=== PATIENT | male | born 1960 | race African-American/Black ===

== ENCOUNTER 2022-04-21 09:02 | Inpatient (IN) | payer OTHER ==
[2022-04-21 09:37] VITALS: BMI 32.0
[2022-04-21] MEDS ORDERED: ACETAMINOPHEN 325 MG TABLET (FP) PO PRN ×2 (11:09)
[2022-04-21] MEDS ORDERED: IBUPROFEN 600 MG TABLET (FP) PO PRN (11:09)
[2022-04-21] MEDS ORDERED: METHOCARBAMOL 500 MG TABLET PO PRN (11:09)
[2022-04-21] MEDS ORDERED: DICYCLOMINE HCL 10 MG CAPSULE PO PRN (11:09)
[2022-04-21] MEDS ORDERED: POLYETHYLENE GLYCOL (HEALTHYLAX) 3350 17 GM PACKET PO PRN (11:09)
[2022-04-21] MEDS ORDERED: BISMUTH SUBSALICYLATE 524 MG/30 ML PO PRN (11:09)
[2022-04-21] MEDS ORDERED: MAGNESIUM HYDROX 2400MG/30ML ORAL SUSPENSION 30 ML CUP PO PRN (11:09)
[2022-04-21] MEDS ORDERED: IBUPROFEN 400 MG TABLET (FP) PO PRN (11:09)
[2022-04-21] MEDS ORDERED: NALOXONE HCL (KLOXXADO) 8 MG SPRAY NS PRN (11:09)
[2022-04-21] MEDS ORDERED: BENZOCAINE/MENTHOL (CHLORASEPTIC ) LOZENGE MM PRN (11:09)
[2022-04-21] MEDS ORDERED: ONDANSETRON *ODT* 4 MG TABLET SL PRN (11:09)
[2022-04-21] MEDS ORDERED: LOPERAMIDE HCL 2 MG CAPSULE PO PRN (11:09)
[2022-04-21] MEDS ORDERED: MAG HYDROX/AL HYDROX/SIMETH 30 ML UNIT-DOSE CUP PO PRN (11:09)
[2022-04-21] MEDS ORDERED: FUROSEMIDE 40 MG TABLET (FP) PO SCH (13:00)
[2022-04-21] MEDS ORDERED: APIXABAN 5 MG TABLET PO SCH (13:00)
[2022-04-21] MEDS ORDERED: SILVER SULFADIAZINE 1% TOP CREAM 50 GM JAR TP SCH (13:00)
[2022-04-21] MEDS: FUROSEMIDE 40 MG TABLET (FP) PO SCH (15:35)
[2022-04-21] MEDS: hydrOXYzine PAMOATE 25 MG CAPSULE (FP) PO PRN ×2 (15:35→22:22)
[2022-04-21] MEDS: APIXABAN 5 MG TABLET PO SCH ×2 (15:36→22:22)
[2022-04-21] MEDS: PATIENT'S OWN MEDICATION (NON-FORMULARY) (Nifedipine [Nifedipine Er] 60 MG Tablet.Er) PO SCH (15:36)
[2022-04-21] MEDS: PATIENT'S OWN MEDICATION (NON-FORMULARY) (Dapagliflozin Propanediol 10 MG Tablet) PO SCH (15:36)
[2022-04-21] MEDS: ISOSORBIDE MONONITRATE 60 MG TAB.SR.24H (FP) PO SCH (18:15)
[2022-04-21] MEDS: SILVER SULFADIAZINE 1% TOP CREAM 50 GM JAR TP SCH (18:16)
[2022-04-21] MEDS: ATORVASTATIN CA 80 MG TABLET (FP) PO SCH (22:22)
[2022-04-21] MEDS: THIAMINE HCL 100 MG TABLET (FP) PO SCH (22:22)
[2022-04-21] MEDS: MELATONIN 5 MG TABLETS PO SCH (22:23)
[2022-04-21] MEDS: SACUBITRIL/VALSARTAN 24 MG-26 MG TABLET PO SCH (23:19)
[2022-04-22] MEDS: PATIENT'S OWN MEDICATION (NON-FORMULARY) (Nifedipine [Nifedipine Er] 60 MG Tablet.Er) PO SCH (10:23)
[2022-04-22] MEDS: PATIENT'S OWN MEDICATION (NON-FORMULARY) (Dapagliflozin Propanediol 10 MG Tablet) PO SCH (10:24)
[2022-04-22] MEDS: SACUBITRIL/VALSARTAN 24 MG-26 MG TABLET PO SCH (10:24)
[2022-04-22] MEDS: PRENATAL VITAMINS W/ FOLIC ACID TABLET (FP) PO SCH (10:25)
[2022-04-22] MEDS: ISOSORBIDE MONONITRATE 60 MG TAB.SR.24H (FP) PO SCH (10:25)
[2022-04-22] MEDS: FUROSEMIDE 40 MG TABLET (FP) PO SCH (10:27)
[2022-04-22] MEDS: APIXABAN 5 MG TABLET PO SCH ×2 (10:27→21:26)
[2022-04-22] MEDS: SILVER SULFADIAZINE 1% TOP CREAM 50 GM JAR TP SCH (10:33)
[2022-04-22 11:25] LABS: BLOOD UREA NITROGEN 36.1 mg/dL (7-18); CALCIUM 8.7 mg/dL (8.5-10.1)
[2022-04-22 11:29] LABS: CREATININE 2.5 mg/dL (0.55-1.3)
[2022-04-22 11:30] LABS: BILIRUBIN,TOTAL 0.6 mg/dL (0.2-1); TOT PROT 6.8 g/dl (6.4-8.2)
[2022-04-22 11:36] LABS: HEMATOCRIT 34.3 % (35.4-49); HEMOGLOBIN 10.9 GM/dL (11.7-16.9); MCH 28.8 pg (25.7-33.7); MCHC 31.9 g/dl (32.0-35.9); MEAN CELL VOLUME 90.2 fl (80-96); MEAN PLT VOLUME 8.9 fl (7.5-11.1); PLATELET COUNT 97 10^3/uL (134-434); RDW 18.4 % (11.9-15.9); WHITE BLOOD COUNT 5.7 K/mm3 (4.0-10.0)
[2022-04-22] MEDS: THIAMINE HCL 100 MG TABLET (FP) PO SCH (21:25)
[2022-04-22] MEDS: MELATONIN 5 MG TABLETS PO SCH (21:25)
[2022-04-22] MEDS: ATORVASTATIN CA 80 MG TABLET (FP) PO SCH (21:26)
[2022-04-23] MEDS: PRENATAL VITAMINS W/ FOLIC ACID TABLET (FP) PO SCH (10:20)
[2022-04-23] MEDS: FUROSEMIDE 40 MG TABLET (FP) PO SCH (10:20)
[2022-04-23] MEDS: APIXABAN 5 MG TABLET PO SCH (10:20)
[2022-04-23] MEDS: SILVER SULFADIAZINE 1% TOP CREAM 50 GM JAR TP SCH (10:21)
[2022-04-23] MEDS: PATIENT'S OWN MEDICATION (NON-FORMULARY) (Nifedipine [Nifedipine Er] 60 MG Tablet.Er) PO SCH (10:21)
[2022-04-23] MEDS: PATIENT'S OWN MEDICATION (NON-FORMULARY) (Dapagliflozin Propanediol 10 MG Tablet) PO SCH (10:21)
[2022-04-23] MEDS: SACUBITRIL/VALSARTAN 24 MG-26 MG TABLET PO SCH (10:21)
[2022-04-23] MEDS: ISOSORBIDE MONONITRATE 60 MG TAB.SR.24H (FP) PO SCH (10:21)
[2022-04-23 11:04] VITALS: BP 120/60; PULSE 103; RESP 16; TEMP 97.5
[2022-04-23 13:20] LABS: CALCIUM 8.6 mg/dL (8.5-10.1); TOT PROT 6.6 g/dl (6.4-8.2)
[2022-04-23 13:21] LABS: ALBUMIN 3.1 g/dl (3.4-5.0); BLOOD UREA NITROGEN 36.2 mg/dL (7-18)
[2022-04-23 13:24] LABS: BILIRUBIN,TOTAL 0.6 mg/dL (0.2-1); CREATININE 2.5 mg/dL (0.55-1.3)
[2022-04-23] MEDS ORDERED: SACUBITRIL/VALSARTAN 24 MG-26 MG TABLET PO SCH (22:00)
== END 2022-04-23 13:10 | disposition home or self-care (01) | DRG 897 ==
LOC: YASAS 09:02 → EDBD 12:04 → Y3N 12:04 → UNDOADMIN 12:04 → UNDODISIN 04-23 13:10
PROVIDERS: ADMIT Allergy & Immunology; ATTEND Surgery
PROC: HZ2ZZZZ Detoxification Services for Substance Abuse Treatment (ICD-10-PCS; principal; 2022-04-21)
DX: F19.230 Other psychoactive substance dependence with withdrawal, uncomplicated (principal); I48.11 Longstanding persistent atrial fibrillation; N17.9 Acute kidney failure, unspecified; L97.921 Non-pressure chronic ulcer of unspecified part of left lower leg limited to breakdown of skin; L97.911 Non-pressure chronic ulcer of unspecified part of right lower leg limited to breakdown of skin; F10.230 Alcohol dependence with withdrawal, uncomplicated; D69.6 Thrombocytopenia, unspecified; E88.09 Other disorders of plasma-protein metabolism, not elsewhere classified; I25.10 Atherosclerotic heart disease of native coronary artery without angina pectoris; I11.0 Hypertensive heart disease with heart failure; I50.9 Heart failure, unspecified; I73.89 Other specified peripheral vascular diseases; E78.5 Hyperlipidemia, unspecified; E11.42 Type 2 diabetes mellitus with diabetic polyneuropathy; Z79.84 Long term (current) use of oral hypoglycemic drugs; Z28.310 Unvaccinated for COVID-19; Z28.9 Immunization not carried out for unspecified reason
CPT/HCPCS: 36415; 80053; 82607; 82728; 82746; 82962; 83036; 83540; 83550; 85027; 86780; 87811; C9803-CS; U0003; U0005